=== PATIENT | female | born 1950 | race African-American/Black ===

== ENCOUNTER 2016-04-21 17:03 | Inpatient (IN) | payer OTHER ==
[~2016-04-21] VITALS: Ht 157.5 cm; Wt 64.5 kg
--- NOTE | ~2016-04-21 | EKG ---
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 : 1950 Requested By: Bernard Muñiz Order Number: [id number] MD: Clifford Kilpatrick Measurements Intervals [place] Rate: 100 P: 38 MA: 164 QRS: -53 QRSD: 93 T: 15 QT: 373 QTc: 482 Interpretive Statements Sinus tachycardia Ventricular premature complex Inferior infarct, old Poor R wave progression Compared to ECG 02/14/2016 14:36:20 Inferior Q waves are more prominent present Electronically Signed On 04-23-2016 8:36:43 [employer] by Clifford Kilpatrick [email or web address] <ELECTRONICALLY SIGNED> By: Clifford Kilpatrick MD, [facility] 04/23/16 0836 1730 1730 Clifford Kilpatrick MD, [facility] /EPI
[2016-04-21 17:03] VITALS: BP 152/81
[~2016-04-21 17:03] MED LIST: AMLODIPINE BESYL5 M1 PO; APAP500 PO; AVAPRO 150 MG150 MG PO; AZOR 10-40 MG1 EACH PO; BENICAR40 MG PO; BIDIL TABLET1 EACH PO; CARVEDILOL12.5 MG PO; CHERATUSSIN AC118 ML; CHERATUSSIN DA480 ML PO; COZAAR 50 MG TA50 M1 PO; DEXAMETHASONE 44 M1 PO; FLORANEX TABLE1 EACH PO; FOLIC ACID1 MG PO; HYDROCODONE-AP1 EAC6 PO; IBUPROFEN 800800 M1 PO; INVANZ1 GM IV; IRBESARTAN150 MG PO; LEVOTHYROXIN0.025 MG PO; ONDANSETRON HCL4 M2 PO; PROTONIX40 M1 PO; TARCEVA150 MG PO; VANCOMYCIN100 MG/M1 PO
[2016-04-21 17:44] LABS: ABSOLUTE NEUTROPHILS 11.7 thou/uL (1.4-8.2); BASOPHILS 0.6 % (0.0-2.0); EOSINOPHILS 0.1 % (0.0-3.0); HEMATOCRIT 32.5 % (37.0-47.0); HEMOGLOBIN 10.2 gm/dL (12.0-15.0); LYMPHOCYTES 11.6 % (24.0-44.0); MCH 26.3 pg (26.0-34.0); MCHC 31.4 % (28.0-37.0); MCV 83.7 fL (80.0-100.0); MONOCYTES 5.5 % (1.0-8.0); PLATELET COUNT 213 thou/uL (150-400); POLYS 82.2 % (36.0-66.0); RBC 3.88 mil/uL (4.20-5.00); RDW 22.9 % (10.5-14.5); WBC 14.2 thou/uL (4.0-11.0)
[2016-04-21 17:47] LABS: ABG SAMPLE TYPE ARTERIAL; BE(vivo) -1.3 mmol/L (-2 to +3); HCO3 22.4 mmol/L (22.0-26.0); LACTATE 2.66 mmol/L (0.5-2.0); O2(CT) 14.4 mL/dL (15.0-23.0); O2Hb 97.5 % (92.0-98.0); PO2 129.2 mmHg (80.0-100.0); pH 7.437 (7.360-7.450); sO2 98.7 % (92.0-98.0); tCO2 23.5 mmol/L (24.0-30.0)
[2016-04-21 17:48] LABS: ABG COMMENT NO COMPLICATIONS.; STICK SITE R.RADIAL
[2016-04-21 17:49] LABS: MANUAL DIFF NO
[2016-04-21 18:03] LABS: APTT 26.4 Seconds (24.5-32.8); INR 1.2
[2016-04-21 18:09] LABS: POTASSIUM 3.9 mmol/L (3.5-5.1)
[2016-04-21 18:34] LABS: ALBUMIN 2.4 g/dL (3.4-5.0); CK-MB MASS 2.3 ng/mL (<0.5-3.6); MAGNESIUM 1.7 mg/dL (1.8-2.4); TOTAL BILIRUBIN 0.7 mg/dL (<0.1-1.0); TOTAL PROTEIN 6.9 g/dL (6.4-8.2); TROPONIN-I 0.14 ng/mL (<0.04-0.07)
[2016-04-21 18:42] LABS: URINE BLOOD NEGATIVE (Negative); URINE COLOR YELLOW; URINE GLUCOSE-RANDOM* NEGATIVE (Negative); URINE KETONES NEGATIVE (Negative); URINE LEUKOCYTES-REFLEX NEGATIVE (Negative); URINE PROTEIN (DIPSTICK) TRACE (Negative); URINE SPECIFIC GRAVITY 1.025 (1.003-1.035); URINE UROBILINOGEN 0.2 E.U./dl (0.2-1.0)
[2016-04-21 18:43] LABS: URINE BILIRUBIN NEGATIVE (Negative)
[2016-04-21 19:53] VITALS: BP 142/71
[2016-04-21 20:34] VITALS: BP 138/75
[2016-04-21 23:54] VITALS: BP 126/74
[2016-04-22 03:20] VITALS: BP 136/81
[2016-04-22 05:38] LABS: ABSOLUTE NEUTROPHILS 9.5 thou/uL (1.4-8.2); BASOPHILS 0.7 % (0.0-2.0); EOSINOPHILS 0.3 % (0.0-3.0); HEMATOCRIT 29.2 % (37.0-47.0); LYMPHOCYTES 13.3 % (24.0-44.0); MCH 25.9 pg (26.0-34.0); MCHC 30.9 % (28.0-37.0); MCV 83.8 fL (80.0-100.0); MONOCYTES 8.2 % (1.0-8.0); PLATELET COUNT 180 thou/uL (150-400); POLYS 77.5 % (36.0-66.0); RBC 3.48 mil/uL (4.20-5.00); WBC 12.3 thou/uL (4.0-11.0)
[2016-04-22 05:50] LABS: MANUAL DIFF NO
[2016-04-22 07:11] LABS: CALCIUM 7.9 mg/dL (8.5-10.1); CREATININE 0.9 mg/dL (0.6-1.3); MAGNESIUM 2.3 mg/dL (1.8-2.4); POTASSIUM 3.5 mmol/L (3.5-5.1)
[2016-04-22 07:42] VITALS: BP 132/73
[2016-04-22 08:22] LABS: POLYCHROMASIA SLIGHT
[2016-04-22 08:23] LABS: ANISOCYTOSIS 3+; MACROCYTES 1+; MICROCYTES 1+
[2016-04-22 08:24] LABS: OVALOCYTES FEW
[2016-04-22 12:06] LABS: HEMOGLOBIN 8.7 gm/dL (12.0-15.0); MCH 26.5 pg (26.0-34.0); MCHC 32.3 % (28.0-37.0); MCV 82.2 fL (80.0-100.0); RBC 3.29 mil/uL (4.20-5.00); RDW 23.5 % (10.5-14.5); WBC 12.2 thou/uL (4.0-11.0)
[2016-04-22 12:15] LABS: CALCIUM 7.6 mg/dL (8.5-10.1); CREATININE 0.8 mg/dL (0.6-1.3); POTASSIUM 3.2 mmol/L (3.5-5.1)
[2016-04-22 13:17] VITALS: BP 129/71
[2016-04-22 16:35] VITALS: BP 128/75
[2016-04-22 19:40] VITALS: BP 111/49
[2016-04-23 04:30] VITALS: BP 144/79
[2016-04-23 07:27] VITALS: BP 153/88
[2016-04-23 11:37] VITALS: BP 124/69
[2016-04-23 14:31] LABS: HEMATOCRIT 27.7 % (37.0-47.0); HEMOGLOBIN 8.8 gm/dL (12.0-15.0); MCH 26.5 pg (26.0-34.0); MCHC 31.8 % (28.0-37.0); MCV 83.4 fL (80.0-100.0); PLATELET COUNT 165 thou/uL (150-400); RBC 3.32 mil/uL (4.20-5.00); RDW 22.9 % (10.5-14.5); WBC 10.4 thou/uL (4.0-11.0)
[2016-04-23 14:32] LABS: MANUAL DIFF YES
[2016-04-23 14:43] LABS: CALCIUM 7.8 mg/dL (8.5-10.1); CREATININE 0.6 mg/dL (0.6-1.3); POTASSIUM 3.4 mmol/L (3.5-5.1)
[2016-04-23 14:57] LABS: ANISOCYTOSIS 2+; TOTAL CELL COUNT 100
[2016-04-23 15:07] VITALS: BP 152/83
[2016-04-23 19:46] VITALS: BP 153/74
[2016-04-24 04:14] VITALS: BP 158/80
[2016-04-24 04:34] LABS: ABG SAMPLE TYPE ARTERIAL; BE(vivo) 1.8 mmol/L (-2 to +3); HCO3 25.8 mmol/L (22.0-26.0); LACTATE 1.58 mmol/L (0.5-2.0); O2(CT) 13.7 mL/dL (15.0-23.0); O2Hb 91.6 % (92.0-98.0); PO2 66.4 mmHg (80.0-100.0); STICK SITE R.RADIAL; pH 7.449 (7.360-7.450); tCO2 26.9 mmol/L (24.0-30.0)
[2016-04-24 05:41] LABS: HEMATOCRIT 28.5 % (37.0-47.0); HEMOGLOBIN 9.1 gm/dL (12.0-15.0); MCH 26.3 pg (26.0-34.0); MCV 82.1 fL (80.0-100.0); RBC 3.47 mil/uL (4.20-5.00); RDW 22.4 % (10.5-14.5); WBC 12.3 thou/uL (4.0-11.0)
[2016-04-24 05:58] LABS: CALCIUM 8.1 mg/dL (8.5-10.1); CREATININE 0.7 mg/dL (0.6-1.3)
[2016-04-24 07:50] VITALS: BP 161/86
[2016-04-24 13:00] VITALS: BP 133/72
[2016-04-24 16:00] VITALS: BP 136/68
[2016-04-24 20:00] VITALS: BP 143/65
[2016-04-25 02:58] VITALS: BP 145/74
[2016-04-25 03:59] LABS: HEMATOCRIT 27.7 % (37.0-47.0); HEMOGLOBIN 8.9 gm/dL (12.0-15.0); MCH 26.2 pg (26.0-34.0); MCHC 31.9 % (28.0-37.0); MCV 82.1 fL (80.0-100.0); RBC 3.38 mil/uL (4.20-5.00); RDW 22.3 % (10.5-14.5); WBC 10.8 thou/uL (4.0-11.0)
[2016-04-25 04:16] LABS: CALCIUM 7.9 mg/dL (8.5-10.1); CREATININE 0.6 mg/dL (0.6-1.3); POTASSIUM 3.1 mmol/L (3.5-5.1)
[2016-04-25 08:10] VITALS: BP 154/90
[2016-04-25 12:20] VITALS: BP 123/50
[2016-04-25 16:20] VITALS: BP 142/71
[2016-04-25 21:23] VITALS: BP 153/51
[2016-04-26 07:30] VITALS: BP 149/76
[2016-04-26] MEDS ORDERED: DUONEB 2.5-0.5 M3 ML INH (10:30)
== END 2016-04-26 14:42 | disposition hospice, home (50) | DRG 291 ==
LOC: ER 17:03 → 4W 19:14 → EROBS 19:14 → 4W 19:35
PROVIDERS: Emergency Medicine; Hospitalist; Internal Medicine Geriatric Medicine; Internal Medicine Hematology & Oncology; Nurse Practitioner Acute Care
DX: I50.23 Acute on chronic systolic (congestive) heart failure (principal); J18.8 Other pneumonia, unspecified organism; J96.21 Acute and chronic respiratory failure with hypoxia; E43 Unspecified severe protein-calorie malnutrition; R65.11 Systemic inflammatory response syndrome (SIRS) of non-infectious origin with acute organ dysfunction; C34.90 Malignant neoplasm of unspecified part of unspecified bronchus or lung; J90 Pleural effusion, not elsewhere classified; E87.0 Hyperosmolality and hypernatremia; C79.31 Secondary malignant neoplasm of brain; N17.9 Acute kidney failure, unspecified; D72.829 Elevated white blood cell count, unspecified; E03.9 Hypothyroidism, unspecified; D64.9 Anemia, unspecified; I11.0 Hypertensive heart disease with heart failure; E86.0 Dehydration; K21.9 Gastro-esophageal reflux disease without esophagitis; Z90.710 Acquired absence of both cervix and uterus; Z79.899 Other long term (current) drug therapy; Z98.890 Other specified postprocedural states; Z82.49 Family history of ischemic heart disease and other diseases of the circulatory system; Z68.26 Body mass index [BMI] 26.0-26.9, adult
CPT/HCPCS: 10045